=== PATIENT | female | born 1995 | race American Indian/Alaskan Native ===

== ENCOUNTER 2019-09-11 13:31 | Emergency (ER) | payer SELFPAY ==
--- NOTE | 2019-09-11 13:37 | Event Note ---
ED Screening Note ED Screening Note: lower cramping lower back pain LNMP 07/12/19 no urinary sx no vaginal discharge no PMHx no allergies to meds This initial assessment/diagnostic orders/clinical plan/treatment(s) is/are subject to change based on patients health status, clinical progression and re- assessment by fellow clinical providers in the ED. Further treatment and workup at subsequent clinical providers discretion. Patient/guardian urged not to elope from the ED as their condition may be serious if not clinically assessed and managed. Initial orders include: UA, urine preg
[2019-09-11 13:41] VITALS: BP 143/78
[2019-09-11 14:18] LABS: HCG Qualitative,Urine Negative (Negative)
[2019-09-11 14:20] LABS: Bacteria,Urine 4+ /HPF (Negative); Bilirubin,Urine NEG (Negative); Blood,Urine NEG (Negative); Color,Urine Yellow (Yellow); Mucus,Urine FEW /HPF; Protein,Urine <15 mg/dL mg/dL (Negative); Urobilinogen,Urine < 2.0 mg/dL (<2.0)
--- NOTE | 2019-09-11 14:41 | Emergency Department Report ---
ED Abdominal Pain HPI - General Chief Complaint: Abdominal Pain Stated Complaint: ABD PAIN Time Seen by Provider: 09/11/19 14:11 Source: patient Mode of arrival: Ambulatory Limitations: No Limitations - History of Present Illness Initial Comments: Patient is 24 years old female with no significant past medical history. Patient presented to the ER complaining of lower abdominal pain, crampy in nature with no radiation. Patient stated that last menstrual cycle was July 12. Patient denied any vaginal bleeding or vaginal discharge. Patient denied any dysuria hematuria or frequency. No fever or chills. MD Complaint: abdominal pain -: days(s) (3) Location: suprapubic Radiation: none Migration to: no migration Quality: cramping ED Review of Systems ROS: Stated complaint: ABD PAIN Other details as noted in HPI Comment: All other systems reviewed and negative Constitutional: denies: chills, fever Respiratory: denies: cough, shortness of breath, SOB with exertion Cardiovascular: denies: chest pain Gastrointestinal: abdominal pain. denies: nausea, vomiting, diarrhea, constipation, hematemesis, melena, hematochezia Musculoskeletal: denies: back pain ED Past Medical Hx - Past Medical History Previous Medical History?: No - Surgical History Past Surgical History?: No - Social History Smoking Status: Never Smoker Substance Use Type: Marijuana ED Physical Exam - General Limitations: No Limitations General appearance: alert, in no apparent distress - Head Head exam: Present: atraumatic, normocephalic, normal inspection - Eye Eye exam: Present: normal appearance - ENT ENT exam: Present: normal exam, normal orophraynx, mucous membranes moist - Neck Neck exam: Present: normal inspection, full ROM. Absent: tenderness, meningismus - Respiratory Respiratory exam: Present: normal lung sounds bilaterally - Cardiovascular Cardiovascular Exam: Present: regular rate, normal rhythm, normal heart sounds - GI/Abdominal GI/Abdominal exam: Present: soft, normal bowel sounds. Absent: distended, tenderness, guarding, rebound, rigid, organomegaly, mass, bruit, pulsatile mass, hernia - Extremities Exam Extremities exam: Present: normal inspection, full ROM, normal capillary refill. Absent: tenderness, pedal edema, calf tenderness - Back Exam Back exam: Present: normal inspection, full ROM. Absent: CVA tenderness (R), CVA tenderness (L), muscle spasm, paraspinal tenderness, vertebral tenderness - Neurological Exam Neurological exam: Present: alert, oriented X3, CN II-XII intact, normal gait, reflexes normal - Psychiatric Psychiatric exam: Present: normal mood - Skin Skin exam: Present: warm, intact, normal color ED Course Vital Signs 09/11/19 09/11/19 13:36 13:58 Temperature 98.2 F Pulse Rate 82 Respiratory 18 15 Rate Blood Pressure 143/78 O2 Sat by Pulse 100 Oximetry ED Medical Decision Making - Lab Data Result diagrams: 09/11/19 14:47 09/11/19 14:47 - Radiology Data Radiology results: report reviewed Referring Physician: AMELIA MURGUIA Patient Name: TOYA MARTINEZ Date of : 1995 Sex: Female Report Date: 2019-09-11 Report Status: Finalized Findings [facility] [address] [place] [address] Ultrasound Report Signed Patient: TOYA LYNNE MR#: [id number] : 1995 Acct:[id number] Age/Sex: 24 / F ADM Date: 09/11/19 Loc: ED Attending Dr: Ordering Physician: AMELIA MURGUAI Date of Service: 09/11/19 Procedure(s): US transvaginal Accession Number(s): [id number] cc: AMELIA MURGUIA ULTRASOUND PELVIS INDICATION: pelvic pain. TECHNIQUE: Transabdominal and Transvaginal. Duplex Color Doppler used: Yes. COMPARISON: None available FINDINGS: Uterus: Present. Size: 7.1 x 4.7 x 5.7 cm. Endometrial complex: Thickened measuring 1.8 cm. Mass lesions: There is a probable fibroid along the uterine fundus measuring 1.9 x 1.5 x 2.3 cm. Additional findings: None. Right Ovary: Size: 4.7 x 3.5 x 4.7 cm Blood flow: Normal. Cyst or mass: A simple appearing cyst is seen containing dependent echogenic material and measuring 3.3 x 3.0 x 2.8 cm. There is a probable hemorrhagic cyst measuring 2.2 x 1.5 x 1.3 cm. No solid lesions are identified. Left Ovary: Size: 2.8 x 2.0 x 3.1 cm Blood flow: Normal. Cyst or mass: A dominant follicle measures 1.5 cm. No other solid or cystic lesion is seen. Urinary Bladder: Normal. Free Fluid: None. Additional Findings: None. IMPRESSION: 1. Probable uterine fibroid as above. 2. Nonspecific endometrial thickening. Please correlate with the patient's menstrual cycle. 3. Probable small right ovarian hemorrhagic cyst, which is likely benign. A follow-up pelvic ultrasound in 8 weeks is recommended. 4. Additional findings as above. Signer Name: Luis Seals MD Signed: 09/11/2019 3:53 PM Workstation Name: [id number] Transcribed By: [place] Dictated By: Luis Seals MD Electronically Authenticated By: Luis Seals MD Signed Date/Time: 09/11/19 1553 DD/ 1548 TD/TT: Critical care attestation.: If time is entered above; I have spent that time in minutes in the direct care of this critically ill patient, excluding procedure time. ED Disposition Clinical Impression: Pelvic pain, Fibroid, Ovarian cyst Disposition: - TO HOME OR SELFCARE Is pt being admited?: No Condition: Stable Instructions: Uterine Fibroids (ED), Ovarian Cyst (ED) Referrals: [facility] [Provider Group] - 3-5 Days
[2019-09-11 15:16] LABS: Basophils % (Auto) 0.3 % (0.0-1.8); Eosinophils % (Auto) 0.2 % (0.0-4.3); Hematocrit 38.1 % (30.3-42.9); Hemoglobin 12.4 gm/dl (10.1-14.3); Lymphocytes # (Auto) 2.1 K/mm3 (1.2-5.4); Lymphocytes % (Auto) 37.9 % (13.4-35.0); Mean Corpuscular HGB Conc 33 % (30-34); Mean Corpuscular Volume 84 fl (79-97); Monocytes # (Auto) 0.4 K/mm3 (0.0-0.8); Monocytes % (Auto) 6.8 % (0.0-7.3); Platelet Count 227 K/mm3 (140-440); Red Blood Count 4.52 M/mm3 (3.65-5.03); Red Cell Distribution Width 13.7 % (13.2-15.2)
[2019-09-11 15:38] LABS: Alanine Aminotransferase 7 units/L (7-56); BUN/Creatinine Ratio 8; Blood Urea Nitrogen 6 mg/dL (7-17); Calcium 8.8 mg/dL (8.4-10.2); Hemolysis Index 6
--- NOTE | 2019-09-11 15:58 | Ultrasound Report ---
ULTRASOUND PELVIS INDICATION: pelvic pain. TECHNIQUE: Transabdominal and Transvaginal. Duplex Color Doppler used: Yes. COMPARISON: None available FINDINGS: Uterus: Present. Size: 7.1 x 4.7 x 5.7 cm. Endometrial complex: Thickened measuring 1.8 cm. Mass lesions: There is a probable fibroid along the uterine fundus measuring 1.9 x 1.5 x 2.3 cm. Additional findings: None. Right Ovary: Size: 4.7 x 3.5 x 4.7 cm Blood flow: Normal. Cyst or mass: A simple appearing cyst is seen containing dependent echogenic material and measuring 3 .3 x 3.0 x 2.8 cm. There is a probable hemorrhagic cyst measuring 2.2 x 1.5 x 1.3 cm. No solid lesion s are identified. Left Ovary: Size: 2.8 x 2.0 x 3.1 cm Blood flow: Normal. Cyst or mass: A dominant follicle measures 1.5 cm. No other solid or cystic lesion is seen. Urinary Bladder: Normal. Free Fluid: None. Additional Findings: None. IMPRESSION: 1. Probable uterine fibroid as above. 2. Nonspecific endometrial thickening. Please correlate with the patient's menstrual cycle. 3. Probable small right ovarian hemorrhagic cyst, which is likely benign. A follow-up pelvic ultrasou nd in 8 weeks is recommended. 4. Additional findings as above. Signer Name: Luis Seals MD Signed: 09/11/2019 3:53 PM Workstation Name: [email or web address]
== END 2019-09-11 17:42 | disposition home or self-care (01) ==
LOC: ED 13:31
DX: N83.201 Unspecified ovarian cyst, right side (principal); D21.9 Benign neoplasm of connective and other soft tissue, unspecified; F12.10 Cannabis abuse, uncomplicated
CPT/HCPCS: 36415; 76830; 76856; 80053; 81001; 81025; 84702; 85025